=== PATIENT | female | born 1990 | race Caucasian/White ===

== ENCOUNTER 2022-12-17 14:42 | Inpatient (IN) | payer OTHER ==
[2022-12-17 15:27] VITALS: BMI 22.6
[2022-12-17] MEDS ORDERED: POLYETHYLENE GLYCOL (HEALTHYLAX) 3350 17 GM PACKET PO PRN (18:32)
[2022-12-17] MEDS ORDERED: ONDANSETRON *ODT* 4 MG TABLET SL PRN (18:32)
[2022-12-17] MEDS ORDERED: LOPERAMIDE HCL 2 MG CAPSULE PO PRN (18:32)
[2022-12-17] MEDS ORDERED: NALOXONE HCL 0.4 MG/ML VIAL IM PRN (18:32)
[2022-12-17] MEDS ORDERED: MAGNESIUM HYDROX 2400MG/30ML ORAL SUSPENSION 30 ML CUP PO PRN (18:32)
[2022-12-17] MEDS ORDERED: IBUPROFEN 400 MG TABLET (FP) PO PRN (18:32)
[2022-12-17] MEDS ORDERED: NALOXONE HCL (KLOXXADO) 8 MG SPRAY NS PRN (18:32)
[2022-12-17] MEDS ORDERED: IBUPROFEN 600 MG TABLET (FP) PO PRN (18:32)
[2022-12-17] MEDS ORDERED: BISMUTH SUBSALICYLATE 524 MG/30 ML PO PRN (18:32)
[2022-12-17] MEDS ORDERED: guaiFENesin 600 MG TABLET.ER (FP) PO PRN (18:32)
[2022-12-17] MEDS ORDERED: BENZONATATE 200 MG CAPSULE PO PRN (18:32)
[2022-12-17] MEDS ORDERED: DICYCLOMINE HCL 10 MG CAPSULE PO PRN (18:32)
[2022-12-17] MEDS ORDERED: cloNIDine HCL 0.1 MG TABLET PO PRN (18:32)
[2022-12-17] MEDS ORDERED: MAG HYDROX/AL HYDROX/SIMETH 30 ML UNIT-DOSE CUP PO PRN (18:32)
[2022-12-17] MEDS ORDERED: methaDONE HCL 10 MG TABLET (FOR DETOX USE ONLY) PO ONE (18:32)
[2022-12-17] MEDS ORDERED: ACETAMINOPHEN 325 MG TABLET (FP) PO PRN (18:32)
[2022-12-17] MEDS ORDERED: NICOTINE 10 MG CARTRIDGE (INHALER) IH PRN (18:32)
[2022-12-17] MEDS ORDERED: BENZOCAINE/MENTHOL (CHLORASEPTIC ) LOZENGE MM PRN (18:32)
[2022-12-17] MEDS ORDERED: methaDONE HCL 10 MG TABLET (FOR DETOX USE ONLY) ONE (19:25)
[2022-12-17] MEDS: diazePAM 5 MG TABLET PO PRN (20:32)
[2022-12-17] MEDS ORDERED: MELATONIN 5 MG TABLETS PO SCH (22:00)
[2022-12-17] MEDS: THIAMINE HCL 100 MG TABLET (FP) PO SCH (22:29)
[2022-12-17] MEDS: METHOCARBAMOL 500 MG TABLET PO PRN (22:31)
[2022-12-18] MEDS: diazePAM 5 MG TABLET PO PRN ×5 (05:31→22:22)
[2022-12-18] MEDS: METHOCARBAMOL 500 MG TABLET PO PRN ×2 (10:18→17:02)
[2022-12-18] MEDS: PRENATAL VITAMINS W/ FOLIC ACID TABLET (FP) PO SCH (10:19)
[2022-12-18] MEDS: NICOTINE 14 MG/24 HOURS TOPICAL PATCH TD SCH (10:20)
[2022-12-18 11:28] LABS: MCHC 31.1 g/dl (32.0-36.0); MEAN CELL VOLUME 63.4 fl (80-96); MEAN PLT VOLUME 8.1 fl (7.5-11.1); PLATELET COUNT 276 10^3/uL (134-434); RBC 5.04 M/mm3 (3.60-5.2); RDW 22.8 % (11.6-15.6); WHITE BLOOD COUNT 3.9 K/mm3 (4.0-10.0)
[2022-12-18 11:32] LABS: MCH 19.8 pg (25.7-33.7)
[2022-12-18 11:50] LABS: BLOOD UREA NITROGEN 11.3 mg/dL (7-18); CALCIUM 9.3 mg/dL (8.5-10.1)
[2022-12-18 11:51] LABS: ALBUMIN 3.5 g/dl (3.4-5.0)
[2022-12-18 11:53] LABS: CREATININE 0.7 mg/dL (0.55-1.3)
[2022-12-18 11:55] LABS: TOT PROT 7.5 g/dl (6.4-8.2)
[2022-12-18] MEDS: hydrOXYzine PAMOATE 25 MG CAPSULE (FP) PO PRN (17:00)
[2022-12-18] MEDS ORDERED: SUVOREXANT 10 MG TABLET PO PRN (22:00)
[2022-12-18] MEDS: THIAMINE HCL 100 MG TABLET (FP) PO SCH (22:22)
[2022-12-19] MEDS: diazePAM 5 MG TABLET PO PRN ×3 (06:04→18:55)
[2022-12-19] MEDS: NICOTINE 14 MG/24 HOURS TOPICAL PATCH TD SCH (09:30)
[2022-12-19] MEDS: PRENATAL VITAMINS W/ FOLIC ACID TABLET (FP) PO SCH (09:30)
[2022-12-19] MEDS ORDERED: methaDONE HCL 10 MG TABLET (FOR DETOX USE ONLY) PO ONE (10:00)
[2022-12-19] MEDS: METHOCARBAMOL 500 MG TABLET PO PRN (13:29)
[2022-12-19] MEDS: THIAMINE HCL 100 MG TABLET (FP) PO SCH (22:59)
[2022-12-20] MEDS: METHOCARBAMOL 500 MG TABLET PO PRN (05:56)
[2022-12-20] MEDS: diazePAM 5 MG TABLET PO PRN ×2 (05:56→09:45)
[2022-12-20 08:54] VITALS: BP 101/59; PULSE 65; RESP 18; TEMP 98.6
[2022-12-20] MEDS: hydrOXYzine PAMOATE 25 MG CAPSULE (FP) PO PRN (09:45)
[2022-12-20] MEDS: NICOTINE 14 MG/24 HOURS TOPICAL PATCH TD SCH (09:49)
[2022-12-20] MEDS: PRENATAL VITAMINS W/ FOLIC ACID TABLET (FP) PO SCH (09:49)
[2022-12-21] MEDS ORDERED: methaDONE HCL 10 MG TABLET (FOR DETOX USE ONLY) PO ONE (10:00)
== END 2022-12-20 10:05 | disposition left against medical advice (07) | DRG 770 ==
LOC: YASAS 14:42 → Y3N 19:45
PROVIDERS: ADMIT Allergy & Immunology; ATTEND Surgery
PROC: HZ2ZZZZ Detoxification Services for Substance Abuse Treatment (ICD-10-PCS; principal; 2022-12-17)
DX: F11.23 Opioid dependence with withdrawal (principal); F14.20 Cocaine dependence, uncomplicated; F13.20 Sedative, hypnotic or anxiolytic dependence, uncomplicated; F17.210 Nicotine dependence, cigarettes, uncomplicated; F19.280 Other psychoactive substance dependence with psychoactive substance-induced anxiety disorder; F19.282 Other psychoactive substance dependence with psychoactive substance-induced sleep disorder; F32.A Depression, unspecified; F41.9 Anxiety disorder, unspecified; F43.10 Post-traumatic stress disorder, unspecified; B18.2 Chronic viral hepatitis C; Z62.810 Personal history of physical and sexual abuse in childhood
CPT/HCPCS: 36415; 80053; 81025; 85027; 86780; C9803-CS; U0003; U0005